=== PATIENT | male | born 1975 | race Caucasian/White ===

== ENCOUNTER 2019-12-05 17:06 | Inpatient (IN) | payer MEDICAID, SELFPAY ==
[~2019-12-05] VITALS: Ht 175.3 cm; Wt 68.5 kg
[2019-12-05 17:12] VITALS: BP_SYST 131
[2019-12-05 18:36] LABS: CALCIUM 7.8 mg/dL (8.4-11.0); CREATININE 2.11 mg/dL (0.55-1.30); POTASSIUM 3.3 mmol/L (3.5-5.1)
[2019-12-05 18:41] LABS: ALBUMIN 1.7 g/dL (3.4-4.8); TOTAL BILIRUBIN 0.2 mg/dL (0.0-1.0)
[2019-12-05 18:43] LABS: BASOPHILS % (AUTO) 0.4 % (0.0-2.0); EOSINOPHILS % (AUTO) 0.5 % (0.0-4.0); LYMPHOCYTES # (AUTO) 1.3 K/uL (1.0-5.5); MEAN CORPUSCULAR HEMOGLOBIN 30 pg (27-31); MEAN CORPUSCULAR HGB CONC 33 % (32-36); MEAN CORPUSCULAR VOLUME 89 fL (79.0-98.0); MONOCYTES # (AUTO) 0.3 K/uL (0.0-1.0); NEUTROPHILS # (AUTO) 2.6 K/uL (1.8-7.7); NEUTROPHILS % (AUTO) 60.1 % (40.0-70.0); PLATELET COUNT (AUTO) 269 K/uL (130-430); RED CELL DISTRIBUTION WIDTH 13.1 % (9.0-15.0); WHITE BLOOD COUNT (AUTO) 4.3 K/uL (4.8-10.8)
[2019-12-05 18:45] LABS: BILIRUBIN,URINE NEGATIVE (NEGATIVE); BLOOD, URINE 2+ (NEGATIVE); GLUCOSE,URINE 3+ (NEGATIVE); KETONES,URINE NEGATIVE (NEGATIVE); LEUKOCYTE ESTERASE ,URINE 2+ (NEGATIVE); NITRITE, URINE NEGATIVE (NEGATIVE); PROTEIN URINE 2+ (NEGATIVE); UROBILINOGEN,URINE 0.2 (0.2-1.0)
[2019-12-05 18:52] LABS: RED BLOOD CELL COUNT(AUTO) 1.98 MIL/uL (4.2-6.2)
[2019-12-05 19:04] LABS: HEMOGLOBIN 5.9 g/dL (14.0-18.0)
[2019-12-05 19:15] LABS: CLARITY/URINE HAZY (CLEAR); COLOR,URINE STRAW (YELLOW)
[2019-12-05 19:26] LABS: BACTERIA,URINE MANY /HPF (None Seen); WBC,URINE >100 /HPF (0-3)
[2019-12-05 19:27] LABS: MUCUS,URINE 1+ /LPF (None Seen)
[2019-12-05] MEDS ORDERED: LIDOCAINE 1% 10 MG/ML, 20 ML MDV INJ ONE (20:15)
[2019-12-05] MEDS ORDERED: NACL 0.9% 2,500 ML IV ONE (21:15)
[2019-12-05] MEDS: 0.45% NACL 1,000 ML IV SCH (21:15)
[2019-12-05] MEDS ORDERED: cefTRIAXone 1 GM IVPB PREMIX 50 ML IV ONE (21:15)
[2019-12-05] MEDS ORDERED: INSULIN REGULAR, HUMAN 10 UNITS/0.1 ML INJ IVP ONE (21:15)
[2019-12-05 22:50] VITALS: BP_SYST 110
[2019-12-06] VITALS: BP_SYST 112
[2019-12-06 08:00] VITALS: BP_SYST 160
[2019-12-06 11:22] VITALS: BP_SYST 155
[2019-12-06] MEDS: PIPERACILLIN/TAZO 2.25G/DEX-IS 50 ML IV SCH ×3 (11:27→17:42)
[2019-12-06] MEDS ORDERED: CRAN1CAP7 PO (11:46)
[2019-12-06] MEDS ORDERED: ASCO500T20 PO (11:46)
[2019-12-06] MEDS ORDERED: INSU100V42 SUBCUT (11:46)
[2019-12-06] MEDS ORDERED: NOR10 PO (11:46)
[2019-12-06] MEDS ORDERED: GLIP5TAB13 PO ×2 (11:46→13:43)
[2019-12-06] MEDS ORDERED: MULT-1189 PO (13:43)
[2019-12-06] MEDS ORDERED: ACET-2165 PO (13:43)
[2019-12-06] MEDS ORDERED: HYDR-4038 PO (13:43)
[2019-12-06] MEDS ORDERED: TAMS-11 PO (13:43)
[2019-12-06] MEDS ORDERED: RIVA10TA PO (13:43)
[2019-12-06] MEDS ORDERED: ZINC220T4 PO (13:43)
[2019-12-06] MEDS ORDERED: PRO40 PO (13:43)
[2019-12-06] MEDS ORDERED: PRAV80TA PO (13:43)
[2019-12-06] MEDS ORDERED: LABE200T28 PO (13:43)
[2019-12-06] MEDS ORDERED: LISI-209 PO (13:43)
[2019-12-06] MEDS ORDERED: INSULIN GLARGINE SUBCUT (13:44)
[2019-12-06] MEDS ORDERED: DEXTROSE 50%-WATER 50 ML DISP.SYRIN IVP PRN (15:00)
[2019-12-06] MEDS ORDERED: GLUCOSE 15 GM GEL (in 37.5 GM TUBE) PO PRN (15:00)
[2019-12-06] MEDS ORDERED: D5W 1,000 ML IV PRN (15:00)
[2019-12-06 16:00] VITALS: BP_SYST 153
[2019-12-06] MEDS ORDERED: hydrALAZINE HCL 25 MG TABLET PO PRN (17:15)
[2019-12-06] MEDS: INSULIN REGULAR, HUMAN 100 UNITS/ML, 10 ML VIAL (humuLIN R) SUBCUT PRN (17:41)
[2019-12-06 18:05] LABS: BASOPHILS # (AUTO) 0.1 K/uL (0.0-0.2); EOSINOPHILS % (AUTO) 0.4 % (0.0-4.0); HEMATOCRIT 34.7 % (36-54); HEMOGLOBIN 11.4 g/dL (14.0-18.0); LYMPHOCYTES # (AUTO) 1.1 K/uL (1.0-5.5); LYMPHOCYTES % (AUTO) 17.7 % (20.5-51.5); MEAN CORPUSCULAR HEMOGLOBIN 29 pg (27-31); MEAN CORPUSCULAR HGB CONC 33 % (32-36); MEAN CORPUSCULAR VOLUME 88 fL (79.0-98.0); MONOCYTES # (AUTO) 0.4 K/uL (0.0-1.0); MONOCYTES % (AUTO) 5.6 % (1.7-9.3); NEUTROPHILS # (AUTO) 4.7 K/uL (1.8-7.7); NEUTROPHILS % (AUTO) 75.3 % (40.0-70.0); PLATELET COUNT (AUTO) 254 K/uL (130-430); RED BLOOD CELL COUNT(AUTO) 3.95 MIL/uL (4.2-6.2); RED CELL DISTRIBUTION WIDTH 13.4 % (9.0-15.0); WHITE BLOOD COUNT (AUTO) 6.2 K/uL (4.8-10.8)
[2019-12-06 20:00] VITALS: BP_SYST 149
[2019-12-06] MEDS: ASCORBIC ACID 500 MG TABLET PO SCH (21:00)
[2019-12-06] MEDS: TAMSULOSIN HCL 0.4 MG CAP PO SCH (21:00)
[2019-12-06] MEDS ORDERED: PRAVASTATIN SODIUM 20 MG TABLET (PRAVACHOL) PO SCH (21:00)
[2019-12-06] MEDS: LABETALOL HCL 100 MG TABLET PO SCH (21:04)
[2019-12-06] MEDS: 0.45% NACL 1,000 ML IV SCH (23:55)
[2019-12-07] VITALS: BP_SYST 141
[2019-12-07] MEDS: LABETALOL HCL 100 MG TABLET PO SCH ×3 (05:53→21:49)
[2019-12-07] MEDS: PIPERACILLIN/TAZO 2.25G/DEX-IS 50 ML IV SCH ×4 (05:53→18:03)
[2019-12-07 08:00] VITALS: BP_SYST 144
[2019-12-07] MEDS: ASCORBIC ACID 500 MG TABLET PO SCH ×2 (10:26→21:00)
[2019-12-07] MEDS: PANTOPRAZOLE SODIUM 40 MG TAB PO SCH (10:27)
[2019-12-07] MEDS: amLODIPine BESYLATE 10 MG TABLET PO SCH (10:27)
[2019-12-07] MEDS: LISINOPRIL 5 MG TABLET PO SCH (10:27)
[2019-12-07 12:00] VITALS: BP_SYST 165
[2019-12-07] MEDS: 0.45% NACL 1,000 ML IV SCH (12:59)
[2019-12-07] MEDS: INSULIN REGULAR, HUMAN 100 UNITS/ML, 10 ML VIAL (humuLIN R) SUBCUT PRN ×2 (13:00→18:04)
[2019-12-07] MEDS: HEPARIN SODIUM,PORCINE 5000 UNITS/ML VIAL SUBCUT SCH ×2 (14:00→21:49)
[2019-12-07 16:06] VITALS: BP_SYST 144
[2019-12-07 20:00] VITALS: BP_SYST 149
[2019-12-07] MEDS: TAMSULOSIN HCL 0.4 MG CAP PO SCH (21:00)
[2019-12-08] VITALS: BP_SYST 171
[2019-12-08] MEDS: 0.45% NACL 1,000 ML IV SCH ×2 (02:09→15:55)
[2019-12-08 04:00] VITALS: BP_SYST 168
[2019-12-08] MEDS: HEPARIN SODIUM,PORCINE 5000 UNITS/ML VIAL SUBCUT SCH ×3 (06:00→21:37)
[2019-12-08] MEDS: LABETALOL HCL 100 MG TABLET PO SCH ×3 (06:00→21:29)
[2019-12-08] MEDS: PIPERACILLIN/TAZO 2.25G/DEX-IS 50 ML IV SCH ×3 (06:00→12:17)
[2019-12-08 08:00] VITALS: BP_SYST 162
[2019-12-08] MEDS: amLODIPine BESYLATE 10 MG TABLET PO SCH (08:43)
[2019-12-08] MEDS: FOLIC ACID 1 MG TABLET PO SCH (08:43)
[2019-12-08] MEDS: ASCORBIC ACID 500 MG TABLET PO SCH ×2 (08:43→20:37)
[2019-12-08] MEDS: PANTOPRAZOLE SODIUM 40 MG TAB PO SCH (08:43)
[2019-12-08] MEDS: LISINOPRIL 5 MG TABLET PO SCH (08:43)
[2019-12-08] MEDS: INSULIN REGULAR, HUMAN 100 UNITS/ML, 10 ML VIAL (humuLIN R) SUBCUT PRN ×2 (12:18→18:32)
[2019-12-08 12:29] VITALS: BP_SYST 154
[2019-12-08] MEDS: LEVOFLOXACIN 250 MG TABLET PO SCH (19:02)
[2019-12-08 20:00] VITALS: BP_SYST 147
[2019-12-08] MEDS: TAMSULOSIN HCL 0.4 MG CAP PO SCH (20:36)
[2019-12-09 01:03] LABS: BILIRUBIN,URINE NEGATIVE (NEGATIVE); BLOOD, URINE 2+ (NEGATIVE); CLARITY/URINE CLEAR (CLEAR); COLOR,URINE YELLOW (YELLOW); GLUCOSE,URINE TRACE (NEGATIVE); KETONES,URINE NEGATIVE (NEGATIVE); LEUKOCYTE ESTERASE ,URINE NEGATIVE (NEGATIVE); NITRITE, URINE NEGATIVE (NEGATIVE); PROTEIN URINE 3+ (NEGATIVE); UROBILINOGEN,URINE 0.2 (0.2-1.0)
[2019-12-09 03:07] LABS: BACTERIA,URINE FEW /HPF (None Seen); URINE AMORPHOUS URATE 1+ /HPF (None Seen); WBC,URINE 0-3 /HPF (0-3)
[2019-12-09] MEDS: 0.45% NACL 1,000 ML IV SCH ×2 (05:15→19:02)
[2019-12-09] MEDS: HEPARIN SODIUM,PORCINE 5000 UNITS/ML VIAL SUBCUT SCH ×3 (06:00→22:00)
[2019-12-09] MEDS: LABETALOL HCL 100 MG TABLET PO SCH ×3 (06:00→22:52)
[2019-12-09 08:00] VITALS: BP_SYST 122
[2019-12-09] MEDS: FOLIC ACID 1 MG TABLET PO SCH (08:23)
[2019-12-09] MEDS: PANTOPRAZOLE SODIUM 40 MG TAB PO SCH (08:23)
[2019-12-09] MEDS: amLODIPine BESYLATE 10 MG TABLET PO SCH (08:23)
[2019-12-09] MEDS: ASCORBIC ACID 500 MG TABLET PO SCH ×2 (08:23→21:00)
[2019-12-09] MEDS: LISINOPRIL 5 MG TABLET PO SCH (08:23)
[2019-12-09] MEDS: INSULIN REGULAR, HUMAN 100 UNITS/ML, 10 ML VIAL (humuLIN R) SUBCUT PRN ×2 (11:37→19:02)
[2019-12-09 12:00] VITALS: BP_SYST 132
[2019-12-09 16:00] VITALS: BP_SYST 142
[2019-12-09 18:12] LABS: URINE SODIUM, RANDOM 46 mmol/L (40-220)
[2019-12-09] MEDS: LEVOFLOXACIN 250 MG TABLET PO SCH (19:02)
[2019-12-09] MEDS: TAMSULOSIN HCL 0.4 MG CAP PO SCH (21:00)
[2019-12-09] MEDS: ACETAMINOPHEN 325 MG TABLET PO PRN (21:00)
[2019-12-09 21:15] VITALS: BP_SYST 124
[2019-12-10 00:15] VITALS: BP_SYST 94
[2019-12-10] MEDS: LABETALOL HCL 100 MG TABLET PO SCH ×3 (06:00→21:51)
[2019-12-10] MEDS: HEPARIN SODIUM,PORCINE 5000 UNITS/ML VIAL SUBCUT SCH ×3 (06:57→21:53)
[2019-12-10 07:17] LABS: BASOPHILS % (AUTO) 0.2 % (0.0-2.0); EOSINOPHILS % (AUTO) 0.1 % (0.0-4.0); HEMATOCRIT 32.2 % (36-54); HEMOGLOBIN 10.7 g/dL (14.0-18.0); LYMPHOCYTES # (AUTO) 1.4 K/uL (1.0-5.5); LYMPHOCYTES % (AUTO) 36.4 % (20.5-51.5); MEAN CORPUSCULAR HEMOGLOBIN 29 pg (27-31); MEAN CORPUSCULAR HGB CONC 33 % (32-36); MEAN CORPUSCULAR VOLUME 87 fL (79.0-98.0); MONOCYTES # (AUTO) 0.2 K/uL (0.0-1.0); MONOCYTES % (AUTO) 6.1 % (1.7-9.3); NEUTROPHILS # (AUTO) 2.1 K/uL (1.8-7.7); NEUTROPHILS % (AUTO) 57.2 % (40.0-70.0); PLATELET COUNT (AUTO) 213 K/uL (130-430); RED BLOOD CELL COUNT(AUTO) 3.71 MIL/uL (4.2-6.2); RED CELL DISTRIBUTION WIDTH 13.1 % (9.0-15.0); WHITE BLOOD COUNT (AUTO) 3.7 K/uL (4.8-10.8)
[2019-12-10 08:00] VITALS: BP_SYST 125
[2019-12-10] MEDS: 0.45% NACL 1,000 ML IV SCH (08:00)
[2019-12-10 08:19] LABS: ALBUMIN 1.7 g/dL (3.4-4.8); CALCIUM 7.7 mg/dL (8.4-11.0); CREATININE 2.06 mg/dL (0.55-1.30); PHOSPHORUS 3.5 mg/dL (2.7-4.5); TOTAL BILIRUBIN 0.2 mg/dL (0.0-1.0)
[2019-12-10] MEDS: FOLIC ACID 1 MG TABLET PO SCH (08:21)
[2019-12-10] MEDS: amLODIPine BESYLATE 10 MG TABLET PO SCH (08:21)
[2019-12-10] MEDS: LISINOPRIL 5 MG TABLET PO SCH (08:22)
[2019-12-10] MEDS: ASCORBIC ACID 500 MG TABLET PO SCH ×2 (08:22→21:51)
[2019-12-10] MEDS: PANTOPRAZOLE SODIUM 40 MG TAB PO SCH (08:22)
[2019-12-10 09:27] LABS: POTASSIUM 2.7 mmol/L (3.5-5.1)
[2019-12-10] MEDS ORDERED: POTASSIUM CHLORIDE 30 MEQ in NS 250 ML IV ONE (09:45)
[2019-12-10] MEDS: INSULIN REGULAR, HUMAN 100 UNITS/ML, 10 ML VIAL (humuLIN R) SUBCUT PRN (11:40)
[2019-12-10 12:03] VITALS: BP_SYST 126
[2019-12-10] MEDS: LEVOFLOXACIN 250 MG TABLET PO SCH (18:00)
[2019-12-10 21:00] VITALS: BP_SYST 119
[2019-12-10 21:30] LABS: CREATININE, URINE 37.2 mg/dL; MICROALBUMIN URINE RANDOM 1845.7 ug/ml (NOT ESTABLISHED)
[2019-12-10] MEDS: TAMSULOSIN HCL 0.4 MG CAP PO SCH (21:50)
[2019-12-10] MEDS: MIRTAZAPINE 15 MG TABLET PO SCH (21:51)
[2019-12-11] MEDS: 0.45% NACL 1,000 ML IV SCH ×3 (00:20→23:46)
[2019-12-11] MEDS ORDERED: ONDANSETRON HCL 4 MG/2 ML VIAL IVP PRN (02:00)
[2019-12-11 05:00] VITALS: BP_SYST 126
[2019-12-11] MEDS: LABETALOL HCL 100 MG TABLET PO SCH ×3 (06:00→21:10)
[2019-12-11] MEDS: HEPARIN SODIUM,PORCINE 5000 UNITS/ML VIAL SUBCUT SCH ×3 (06:51→21:10)
[2019-12-11 07:18] LABS: BASOPHILS % (AUTO) 0.4 % (0.0-2.0); HEMATOCRIT 30.1 % (36-54); LYMPHOCYTES # (AUTO) 0.9 K/uL (1.0-5.5); LYMPHOCYTES % (AUTO) 19.5 % (20.5-51.5); MEAN CORPUSCULAR HEMOGLOBIN 29 pg (27-31); MEAN CORPUSCULAR HGB CONC 33 % (32-36); MEAN CORPUSCULAR VOLUME 87 fL (79.0-98.0); MONOCYTES # (AUTO) 0.2 K/uL (0.0-1.0); MONOCYTES % (AUTO) 3.6 % (1.7-9.3); NEUTROPHILS # (AUTO) 3.5 K/uL (1.8-7.7); NEUTROPHILS % (AUTO) 76.5 % (40.0-70.0); PLATELET COUNT (AUTO) 208 K/uL (130-430); RED BLOOD CELL COUNT(AUTO) 3.46 MIL/uL (4.2-6.2); RED CELL DISTRIBUTION WIDTH 13.2 % (9.0-15.0); RETICULOCYTE COUNT 0.7 % (0.5-1.5); WHITE BLOOD COUNT (AUTO) 4.5 K/uL (4.8-10.8)
[2019-12-11 07:38] LABS: CALCIUM 7.6 mg/dL (8.4-11.0); CREATININE 2.27 mg/dL (0.55-1.30); POTASSIUM 3.3 mmol/L (3.5-5.1)
[2019-12-11 08:00] VITALS: BP_SYST 107
[2019-12-11 08:30] LABS: TOTAL IRON BIND. CAPACITY 119 ug/dL (250-450)
[2019-12-11] MEDS: ASCORBIC ACID 500 MG TABLET PO SCH ×2 (09:00→21:00)
[2019-12-11] MEDS: FOLIC ACID 1 MG TABLET PO SCH (09:00)
[2019-12-11] MEDS: LISINOPRIL 5 MG TABLET PO SCH (09:00)
[2019-12-11] MEDS: PANTOPRAZOLE SODIUM 40 MG TAB PO SCH (09:00)
[2019-12-11] MEDS: amLODIPine BESYLATE 10 MG TABLET PO SCH (09:00)
[2019-12-11 10:36] LABS: HEMATOCRIT 17.7 % (36-54)
[2019-12-11 13:00] VITALS: BP_SYST 104
[2019-12-11] MEDS ORDERED: KCL 20 mEq in 100 mL (PREMIX) 100 ML IV ONE (16:45)
[2019-12-11 17:00] VITALS: BP_SYST 123
[2019-12-11] MEDS: ACETAMINOPHEN 325 MG TABLET PO PRN ×2 (18:00→23:45)
[2019-12-11] MEDS: LEVOFLOXACIN 250 MG TABLET PO SCH (18:13)
[2019-12-11 20:00] VITALS: BP_SYST 129
[2019-12-11] MEDS ORDERED: BALSAM PERU/CASTOR OIL 60 GM OINT...G. TP ONE (20:00)
[2019-12-11] MEDS: MIRTAZAPINE 15 MG TABLET PO SCH (21:00)
[2019-12-11] MEDS: TAMSULOSIN HCL 0.4 MG CAP PO SCH (21:00)
[2019-12-12 00:14] VITALS: BP_SYST 137
[2019-12-12] MEDS: LABETALOL HCL 100 MG TABLET PO SCH ×3 (05:35→21:00)
[2019-12-12] MEDS: HEPARIN SODIUM,PORCINE 5000 UNITS/ML VIAL SUBCUT SCH ×3 (05:35→21:00)
[2019-12-12] MEDS: ACETAMINOPHEN 325 MG TABLET PO PRN ×3 (05:35→18:04)
[2019-12-12 07:10] LABS: FOLATE (FOLIC ACID) >20.0 ng/mL (>3.0)
[2019-12-12 07:33] LABS: BASOPHILS % (AUTO) 0.3 % (0.0-2.0); HEMATOCRIT 28.9 % (36-54); HEMOGLOBIN 9.8 g/dL (14.0-18.0); LYMPHOCYTES # (AUTO) 0.6 K/uL (1.0-5.5); LYMPHOCYTES % (AUTO) 12.8 % (20.5-51.5); MEAN CORPUSCULAR HEMOGLOBIN 29 pg (27-31); MEAN CORPUSCULAR HGB CONC 34 % (32-36); MEAN CORPUSCULAR VOLUME 86 fL (79.0-98.0); MONOCYTES # (AUTO) 0.2 K/uL (0.0-1.0); MONOCYTES % (AUTO) 3.7 % (1.7-9.3); NEUTROPHILS # (AUTO) 3.9 K/uL (1.8-7.7); NEUTROPHILS % (AUTO) 83.2 % (40.0-70.0); PLATELET COUNT (AUTO) 192 K/uL (130-430); RED BLOOD CELL COUNT(AUTO) 3.35 MIL/uL (4.2-6.2); RED CELL DISTRIBUTION WIDTH 13.4 % (9.0-15.0); WHITE BLOOD COUNT (AUTO) 4.6 K/uL (4.8-10.8)
[2019-12-12] MEDS: amLODIPine BESYLATE 10 MG TABLET PO SCH (09:00)
[2019-12-12] MEDS: FOLIC ACID 1 MG TABLET PO SCH (09:00)
[2019-12-12] MEDS: ASCORBIC ACID 500 MG TABLET PO SCH ×2 (09:00→21:00)
[2019-12-12] MEDS: LISINOPRIL 5 MG TABLET PO SCH (09:00)
[2019-12-12] MEDS: PANTOPRAZOLE SODIUM 40 MG TAB PO SCH (09:00)
[2019-12-12 11:35] LABS: FERRITIN 1295 ng/mL (30-400)
[2019-12-12] MEDS: BALSAM PERU/CASTOR OIL 60 GM OINT...G. TP SCH (12:22)
[2019-12-12] MEDS: 0.45% NACL 1,000 ML IV SCH (12:23)
[2019-12-12] MEDS: LEVOFLOXACIN 250 MG TABLET PO SCH (18:03)
[2019-12-12] MEDS: TAMSULOSIN HCL 0.4 MG CAP PO SCH (21:00)
[2019-12-12] MEDS: MIRTAZAPINE 15 MG TABLET PO SCH (21:00)
[2019-12-13] MEDS: 0.45% NACL 1,000 ML IV SCH ×2 (01:56→15:20)
[2019-12-13 04:00] VITALS: BP_SYST 128
[2019-12-13] MEDS: ACETAMINOPHEN 325 MG TABLET PO PRN ×2 (04:30→13:53)
[2019-12-13] MEDS: LABETALOL HCL 100 MG TABLET PO SCH ×2 (06:00→13:53)
[2019-12-13] MEDS: HEPARIN SODIUM,PORCINE 5000 UNITS/ML VIAL SUBCUT SCH ×2 (06:00→13:54)
[2019-12-13] MEDS: INSULIN REGULAR, HUMAN 100 UNITS/ML, 10 ML VIAL (humuLIN R) SUBCUT PRN (07:10)
[2019-12-13] MEDS: FOLIC ACID 1 MG TABLET PO SCH (09:00)
[2019-12-13] MEDS: ASCORBIC ACID 500 MG TABLET PO SCH (09:00)
[2019-12-13] MEDS: PANTOPRAZOLE SODIUM 40 MG TAB PO SCH (09:00)
[2019-12-13] MEDS: amLODIPine BESYLATE 10 MG TABLET PO SCH (09:00)
[2019-12-13] MEDS: BALSAM PERU/CASTOR OIL 60 GM OINT...G. TP SCH (09:00)
[2019-12-13] MEDS: LISINOPRIL 5 MG TABLET PO SCH (09:00)
[2019-12-13] MEDS: QUEtiapine FUMARATE 25 MG TABLET PO SCH ×2 (09:00→15:00)
[2019-12-13] MEDS ORDERED: DICYCLOMINE HCL 10 MG CAPSULE PO SCH (09:45)
[2019-12-13] MEDS ORDERED: SER25 PO ×4 (15:35→15:38)
[2019-12-13] MEDS ORDERED: DICY10CA13 PO (15:40)
[2019-12-13] MEDS ORDERED: DICY10SO PO (15:40)
[2019-12-13] MEDS ORDERED: FOLI-43 PO (15:41)
[2019-12-13] MEDS ORDERED: HEPA500015 SUBCUT (15:42)
[2019-12-13] MEDS ORDERED: LEVO750T45 PO (15:44)
[2019-12-13] MEDS ORDERED: REM15 PO (15:45)
[2019-12-13 15:46] LABS: HAPTOGLOBIN 514 mg/dL (23-355)
[2019-12-13] MEDS ORDERED: BALS60OI TP (15:46)
[2019-12-13] MEDS: LEVOFLOXACIN 250 MG TABLET PO SCH (18:00)
[2019-12-13] MEDS ORDERED: MIRTAZAPINE 15 MG TABLET PO SCH (21:00)
== END 2019-12-13 18:35 | DRG 720 ==
LOC: SED 17:06 → STU 21:13 → SMU 12-07 20:02
PROVIDERS: ADMIT Internal Medicine; ATTEND Internal Medicine
PROC: 30233N1 Transfusion of Nonautologous Red Blood Cells into Peripheral Vein, Percutaneous Approach (ICD-10-PCS; principal; 2019-12-06)
DX: A41.9 Sepsis, unspecified organism (principal); U07.1 COVID-19; E43 Unspecified severe protein-calorie malnutrition; N17.9 Acute kidney failure, unspecified; G82.20 Paraplegia, unspecified; L89.90 Pressure ulcer of unspecified site, unspecified stage; B96.1 Klebsiella pneumoniae [K. pneumoniae] as the cause of diseases classified elsewhere; E87.1 Hypo-osmolality and hyponatremia; K21.9 Gastro-esophageal reflux disease without esophagitis; I10 Essential (primary) hypertension; E78.5 Hyperlipidemia, unspecified; J69.0 Pneumonitis due to inhalation of food and vomit; D64.9 Anemia, unspecified; N40.0 Benign prostatic hyperplasia without lower urinary tract symptoms; D63.8 Anemia in other chronic diseases classified elsewhere; F32.9 Major depressive disorder, single episode, unspecified; F41.9 Anxiety disorder, unspecified; E11.622 Type 2 diabetes mellitus with other skin ulcer; L98.499 Non-pressure chronic ulcer of skin of other sites with unspecified severity; G89.29 Other chronic pain; M54.9 Dorsalgia, unspecified; E87.6 Hypokalemia; E86.0 Dehydration; N31.9 Neuromuscular dysfunction of bladder, unspecified; N13.6 Pyonephrosis; Z68.22 Body mass index [BMI] 22.0-22.9, adult; Z74.01 Bed confinement status
CPT/HCPCS: 36415; 71045; 76770; 80048; 80053; 81000-TC; 82043; 82272; 82570; 82570-TC; 82607; 82728; 82746; 82962; 83010; 83540-TC; 83550-TC; 83605; 83735-TC; 83935-TC; 84100-TC; 84302-TC; 84311; 85025; 85044-TC; 86886; 86900; 86901; 86920; 87040-TC; 87081; 87086; 87186-TC; 93005; 96365; 96375; 99285; J0696; J1644; J1815; J2405; J2543; J3480; J7050; P9021; U0003-CS

== ENCOUNTER 2022-05-17 22:35 | Inpatient (IN) | payer MEDICAID ==
[~2022-05-17] VITALS: Ht 175.3 cm; Wt 78.0 kg
[~2022-05-17 22:35] MED LIST: ACET325T PO; ASCO500T20 PO; BALS60OI TP; CRAN1CAP7 PO; DICY10CA13 PO; FOLI-43 PO; GLIP5TAB13 PO; HEPA500015 SUBCUT; HYDR-4038 PO; INSU100V42 SUBCUT; INSULIN GLARGINE SUBCUT; LABE200T9 PO; LEVO750T64 PO; LISI-209 PO; MIRT-114 PO; MULT-1189 PO; NOR10 PO; PRAV80TA PO; PRO40 PO; SER25 PO; TAMS-11 PO; ZINC220T4 PO
--- NOTE | 2022-05-17 22:39 | NUR ---
Placed in room 01 . Placed on secured entrance monitor, blood pressure machine and pulse oximeter. To gown for exam. Side rails up. Report given to Mecca MCKEON.
[2022-05-17 22:40] VITALS: BP_SYST 178
--- NOTE | 2022-05-17 23:02 | NUR ---
XRAY AT BEDSIDE
[2022-05-17] MEDS ORDERED: VANCOMYCIN HCL 1,000 MG in NS 250 ML IV ONE (23:30)
[2022-05-17] MEDS ORDERED: MEROPENEM 1 GM IVPB PREMIX 50 ML IV ONE (23:30)
[2022-05-18] MEDS ORDERED: MEROPENEM 1 GM VIAL IV ONE (00:10)
--- NOTE | 2022-05-18 00:15 | NUR ---
PT BIB AMB FROM [facility] W C/O OF SOB AFTER DIALYSIS TODAY. SHUNT IN LEFT NECK MALFUNCTION AT DIALYSIS. PT WAS GIVEN A BREATHING TX. PT IS A PARAPLEGIC. NON-VERBAL, A/O X3.
[2022-05-18] MEDS ORDERED: VANCOMYCIN HCL 1000 MG/VIAL IV ONE (00:34)
--- NOTE | 2022-05-18 00:37 | NUR ---
COVID 19 SWAB TEST SAMPLE SENT TO LAB FOR ANALYSIS
[2022-05-18 00:41] LABS: BASOPHILS % (AUTO) 0.1 % (0.0-2.0); HEMATOCRIT 32.9 % (36-54); HEMOGLOBIN 10.8 g/dL (14.0-18.0); LYMPHOCYTES # (AUTO) 0.3 K/uL (1.0-5.5); LYMPHOCYTES % (AUTO) 1.9 % (20.5-51.5); MEAN CORPUSCULAR HEMOGLOBIN 30 pg (27-31); MEAN CORPUSCULAR HGB CONC 33 % (32-36); MEAN CORPUSCULAR VOLUME 91 fL (79.0-98.0); MONOCYTES # (AUTO) 0.5 K/uL (0.0-1.0); MONOCYTES % (AUTO) 2.9 % (1.7-9.3); NEUTROPHILS # (AUTO) 17.3 K/uL (1.8-7.7); NEUTROPHILS % (AUTO) 95.1 % (40.0-70.0); PLATELET COUNT (AUTO) 200 K/uL (130-430); RED BLOOD CELL COUNT(AUTO) 3.61 MIL/uL (4.2-6.2); RED CELL DISTRIBUTION WIDTH 15.2 % (9.0-15.0); WHITE BLOOD COUNT (AUTO) 18.2 K/uL (4.8-10.8)
[2022-05-18 01:10] LABS: CALCIUM 6.7 mg/dL (8.4-11.0); CREATININE 9.24 mg/dL (0.55-1.30)
[2022-05-18 01:25] LABS: ALBUMIN 1.8 g/dL (3.4-4.8); TOTAL BILIRUBIN 0.2 mg/dL (0.0-1.0)
[2022-05-18] MEDS ORDERED: PIPE2.2512 IV (01:42)
[2022-05-18] MEDS ORDERED: EPOE3000 (01:42)
--- NOTE | 2022-05-18 02:17 | NUR ---
PROVIDED PATIENT WITH WATER. PATIENT IS MORE VERBAL AND ABLE TO MAKE REQUESTS.
--- NOTE | 2022-05-18 03:06 | NUR ---
PT RESTING IN BED, NO ACUTE DISTRESS NOTED, VSS.
--- NOTE | 2022-05-18 03:30 | NUR ---
Admit bed requested Patient will be admitted to care of Dr. CASH. Admitted to TELE unit. Diagnosis PNEUMONIA Inpatient (Yes or No) YES Observation (Yes or No) NO Orientation concerns or request close to nursing station (Yes or No) NO Covid Status NEG On vent or bipap NO Isolation requirements NO Needs a sitter NO From Home (Yes or if No enter name of facility) NO COVINA CARE Requires Dialysis (Yes or No) YES Med Rec Completed (Yes of No) YES
[2022-05-18] MEDS ORDERED: PIPERACILLIN/TAZOBACTAM 2.25 GM VIAL IV ONE ×2 (05:30→23:17)
[2022-05-18] MEDS: PIPERACILLIN/TAZOBACTAM 2.25 GM in NS 50 ML IV SCH ×2 (05:42→14:30)
--- NOTE | 2022-05-18 06:24 | NUR ---
Patient resting quietly. No acute distress noted. Vital signs within normal range.
[2022-05-18] MEDS ORDERED: MAGNESIUM SULFATE 50 ML IV PRN (07:00)
[2022-05-18] MEDS ORDERED: ACETAMINOPHEN 325 MG TABLET PO PRN ×2 (07:00→07:45)
[2022-05-18] MEDS ORDERED: MORPHINE 2 MG/ML INJ. SYRINGE IVP PRN ×2 (07:00)
[2022-05-18] MEDS ORDERED: POTASSIUM CHLORIDE 20 MEQ TAB.PRT.SR PO PRN (07:00)
[2022-05-18] MEDS ORDERED: ONDANSETRON HCL 4 MG/2 ML VIAL IVP PRN (07:00)
[2022-05-18] MEDS ORDERED: LORazepam 2 MG/ML VIAL IVP PRN (07:00)
[2022-05-18] MEDS ORDERED: DOCUSATE SODIUM 100 MG CAPSULE PO PRN (07:00)
[2022-05-18] MEDS ORDERED: NALOXONE HCL 0.4 MG/ML AMP (NARCAN) IVP PRN ×2 (07:00)
[2022-05-18] MEDS ORDERED: DEXTROSE 50% JECT 50 ML DISP.SYRIN IVP PRN (07:00)
[2022-05-18] MEDS ORDERED: MUPIROCIN 2% TOPICAL OINTMENT 22 GM NS PRN (07:00)
--- NOTE | 2022-05-18 07:30 | NUR ---
RECEIVED FROM LINDA VELASCO. ASSUMED CARE.
--- NOTE | 2022-05-18 07:31 | NUR ---
RECEIVED PT FROM LINDA MORRISON. ASSUMED CARE.
--- NOTE | 2022-05-18 07:37 | NUR ---
DR. CASH AT BEDSIDE TO ASSESS PT.
[2022-05-18 07:59] LABS: BASOPHILS % (AUTO) 0.3 % (0.0-2.0); EOSINOPHILS # (AUTO) 0.1 K/uL (0.0-0.4); EOSINOPHILS % (AUTO) 0.5 % (0.0-4.0); HEMATOCRIT 29.3 % (36-54); HEMOGLOBIN 9.8 g/dL (14.0-18.0); LYMPHOCYTES % (AUTO) 8.1 % (20.5-51.5); MEAN CORPUSCULAR HEMOGLOBIN 30 pg (27-31); MEAN CORPUSCULAR HGB CONC 34 % (32-36); MEAN CORPUSCULAR VOLUME 90 fL (79.0-98.0); MONOCYTES # (AUTO) 0.4 K/uL (0.0-1.0); MONOCYTES % (AUTO) 3.5 % (1.7-9.3); NEUTROPHILS # (AUTO) 11.3 K/uL (1.8-7.7); NEUTROPHILS % (AUTO) 87.6 % (40.0-70.0); PLATELET COUNT (AUTO) 207 K/uL (130-430); RED BLOOD CELL COUNT(AUTO) 3.26 MIL/uL (4.2-6.2); RED CELL DISTRIBUTION WIDTH 15.3 % (9.0-15.0)
[2022-05-18 08:07] LABS: WHITE BLOOD COUNT (AUTO) 12.9 K/uL (4.8-10.8)
[2022-05-18 08:18] LABS: CALCIUM 5.9 mg/dL (8.4-11.0); CREATININE 9.47 mg/dL (0.55-1.30)
--- NOTE | 2022-05-18 08:37 | NUR ---
PT'S BS 165, INSULIN HELD, PT REFUSES TO EAT AT THIS TIME.
[2022-05-18] MEDS ORDERED: CALCIUM GLUCONATE 1 GM in NS 100 ML IV ONE (08:45)
[2022-05-18] MEDS ORDERED: CALCIUM GLUCONATE 1 GM/10 ML VIAL ONE (09:03)
--- NOTE | 2022-05-18 09:25 | NUR ---
CALCIUM GLUCONATE 1GM IVPB INITIATED FOR CA=5.9.
[2022-05-18] MEDS: FOLIC ACID 1 MG TABLET PO SCH (09:58)
[2022-05-18] MEDS: amLODIPine BESYLATE 10 MG TABLET PO SCH (09:59)
[2022-05-18] MEDS: lisinopriL 5 MG TABLET PO SCH (09:59)
[2022-05-18] MEDS: QUEtiapine FUMARATE 25 MG TABLET PO SCH ×3 (10:00→23:31)
--- NOTE | 2022-05-18 10:01 | NUR ---
SCHEDULED MEDS GIVEN AND TOLERATED WELL.
--- NOTE | 2022-05-18 12:38 | NUR ---
BLOOD SUGAR 140, NO INSULIN GIVEN PER RISS. PT EATING LUNCH AT THIS TIME. DENIES PAIN.
[2022-05-18] MEDS: CALCIUM ACETATE 667 MG CAP PO SCH ×2 (12:39→18:45)
[2022-05-18] MEDS ORDERED: LABETALOL HCL 100 MG TABLET PO SCH (14:00)
[2022-05-18] MEDS: LABETALOL HCL 100 MG TABLET PO SCH (14:00)
--- NOTE | 2022-05-18 14:39 | NUR ---
BLOOD PRESSURE 91/52, HR 74. SCHEDULED LABETALOL HELD.
--- NOTE | 2022-05-18 18:01 | NUR ---
HD NURSE AT BEDSIDE, HE STATED PT WILL RECEIVED HEMODIALYSIS LATER TONIGHT. PT MOVED TO ROOM 7 FOR SINK AVAILABILITY. HD CONSENT SIGNED AND PLACED IN CHART.
--- NOTE | 2022-05-18 18:10 | NUR ---
DR. MONK AT BEDSIDE TO ASSESS PT.
--- NOTE | 2022-05-18 19:27 | NUR ---
ENDORSED PT TO LINDA JOEL. ALL QUESTIONS AND CONCERNS ADDRESSED.
--- NOTE | 2022-05-18 19:58 | NUR ---
Dialysis nurse Alejandrina at bedside and reports that HD access site is not working and was unable to dialyze the pt. HD nurse received order to d/c access site per MD Morgan. Suture kit provided to nurse and will monitor site.
[2022-05-18] MEDS ORDERED: PRAVASTATIN SODIUM 20 MG TABLET (PRAVACHOL) PO SCH (21:00)
--- NOTE | 2022-05-18 21:40 | NUR ---
Patient will be admitted to care of MD Valentine. Admitted to TELE unit. Will go to room 111A. Complete and up to date summary report printed. SBAR report given at bedside to LINDA Leon with opportunity for questions.
[2022-05-18 23:00] VITALS: BP_SYST 148
[2022-05-18] MEDS: ATORVASTATIN 20 MG TABLET PO SCH (23:31)
[2022-05-18] MEDS: TAMSULOSIN HCL 0.4 MG CAP PO SCH (23:31)
[2022-05-19] VITALS: BP_SYST 148
--- NOTE | 2022-05-19 05:34 | NUR ---
RECEIVED PATIENT TO TELEMETRY WEST UNIT AT 2145 FROM ER. REPORT AND CARE OF PATIENT WAS ENDORSED FROM LINDA SHERIFF ER NURSE. PATIENT WAS NOT IN DISTRESS ON ADMISSION, HE IS QUIET WITH FLAT AFFECT. HE SPEAKS BOTH VAT[place] CITIZEN AND HEBREW WITH THE PRIMARY APPEARING TO BE [place] CITIZEN. WOUND ASSESSMENT AND CARE WAS DONE, PHOTOS WERE TAKEN OF RIGHT AND LEFT HIP, LEFT BUTTOCKS AND SACRAL AREA, AND BLISTERING APPEARANCE OF BACK. NO COMPLAINTS OF PAIN OR DISCOMFORT, PATIENT WAS CHECKED FREQUENTLY. PATIENT DOES HAVE ABILITY TO TURN SELF WITH USE OF SIDE RAILS, VITALS ARE STABLE.
[2022-05-19 06:43] LABS: BASOPHILS % (AUTO) 0.4 % (0.0-2.0); EOSINOPHILS # (AUTO) 0.2 K/uL (0.0-0.4); EOSINOPHILS % (AUTO) 3.1 % (0.0-4.0); HEMATOCRIT 28.3 % (36-54); HEMOGLOBIN 9.5 g/dL (14.0-18.0); LYMPHOCYTES # (AUTO) 1.4 K/uL (1.0-5.5); LYMPHOCYTES % (AUTO) 18.9 % (20.5-51.5); MEAN CORPUSCULAR HEMOGLOBIN 31 pg (27-31); MEAN CORPUSCULAR HGB CONC 34 % (32-36); MEAN CORPUSCULAR VOLUME 91 fL (79.0-98.0); MONOCYTES # (AUTO) 0.5 K/uL (0.0-1.0); MONOCYTES % (AUTO) 6.7 % (1.7-9.3); NEUTROPHILS # (AUTO) 5.1 K/uL (1.8-7.7); NEUTROPHILS % (AUTO) 70.9 % (40.0-70.0); PLATELET COUNT (AUTO) 201 K/uL (130-430); RED BLOOD CELL COUNT(AUTO) 3.13 MIL/uL (4.2-6.2); RED CELL DISTRIBUTION WIDTH 15.1 % (9.0-15.0); WHITE BLOOD COUNT (AUTO) 7.3 K/uL (4.8-10.8)
[2022-05-19 08:24] LABS: CALCIUM 6.9 mg/dL (8.4-11.0); CREATININE 9.93 mg/dL (0.55-1.30)
[2022-05-19] MEDS: CALCIUM ACETATE 667 MG CAP PO SCH ×3 (08:29→18:06)
[2022-05-19] MEDS: QUEtiapine FUMARATE 25 MG TABLET PO SCH ×2 (08:30→15:00)
[2022-05-19] MEDS: lisinopriL 5 MG TABLET PO SCH (08:31)
[2022-05-19] MEDS: amLODIPine BESYLATE 10 MG TABLET PO SCH (08:31)
[2022-05-19] MEDS: FOLIC ACID 1 MG TABLET PO SCH (08:32)
[2022-05-19] MEDS: FUROSEMIDE 40 MG/4 ML VIAL IVP SCH (08:33)
--- NOTE | 2022-05-19 08:50 | NUR ---
PAGED DR. MCKEON Regarding critical values BUN 111, Creat 9.93, Ca 6.9. Spoke to Norma. Waiting for response.
[2022-05-19] MEDS ORDERED: CALCIUM GLUCONATE 2 GM in NS 100 ML IV ONE ×2 (09:00→10:00)
[2022-05-19] MEDS: INSULIN LISPRO SLIDING SCALE 100 UNITS/ML, 3 ML VIAL (humaLOG) SUBCUT PRN (11:54)
--- NOTE | 2022-05-19 12:00 | NUR ---
RN ROUNDS Patient flat affect at this time. He is refusing medications at this time.
[2022-05-19 13:41] VITALS: BP_SYST 131
[2022-05-19 17:32] VITALS: BP_SYST 145
--- NOTE | 2022-05-19 19:03 | NUR ---
OPENING NOTE Patient laying in bed. Affect is flat. Denies pain or discomfort. Call light within reach. Safety precautions observed. Addendum: 05/19/22 at 1904 by Cachorro Pisano RN ACTUAL TIME 0740
--- NOTE | 2022-05-19 19:04 | NUR ---
CLOSING NOTE Patient laying in bed. Denies pain or discomfort. Call light within reach. All safety precautions observed.
[2022-05-19 20:00] VITALS: BP_SYST 161
[2022-05-20 00:30] VITALS: BP_SYST 153
[2022-05-20] MEDS: QUEtiapine FUMARATE 25 MG TABLET PO SCH ×4 (00:51→21:13)
[2022-05-20] MEDS: ATORVASTATIN 20 MG TABLET PO SCH ×2 (00:51→21:11)
[2022-05-20] MEDS: TAMSULOSIN HCL 0.4 MG CAP PO SCH ×2 (00:53→21:10)
[2022-05-20] MEDS: LABETALOL HCL 100 MG TABLET PO SCH ×4 (00:53→21:11)
[2022-05-20] MEDS: PIPERACILLIN/TAZOBACTAM 2.25 GM in NS 50 ML IV SCH ×3 (01:12→21:13)
[2022-05-20] MEDS: FUROSEMIDE 40 MG/4 ML VIAL IVP SCH ×3 (01:15→21:12)
[2022-05-20 02:24] VITALS: BP_SYST 137
[2022-05-20 07:32] LABS: CALCIUM 6.6 mg/dL (8.4-11.0)
[2022-05-20 07:33] LABS: CREATININE 9.94 mg/dL (0.55-1.30)
[2022-05-20 07:42] LABS: BASOPHILS % (AUTO) 0.4 % (0.0-2.0); EOSINOPHILS # (AUTO) 0.3 K/uL (0.0-0.4); EOSINOPHILS % (AUTO) 2.8 % (0.0-4.0); HEMATOCRIT 25.8 % (36-54); HEMOGLOBIN 8.7 g/dL (14.0-18.0); LYMPHOCYTES # (AUTO) 1.4 K/uL (1.0-5.5); LYMPHOCYTES % (AUTO) 13.7 % (20.5-51.5); MEAN CORPUSCULAR HEMOGLOBIN 31 pg (27-31); MEAN CORPUSCULAR HGB CONC 34 % (32-36); MEAN CORPUSCULAR VOLUME 90 fL (79.0-98.0); MONOCYTES # (AUTO) 0.5 K/uL (0.0-1.0); MONOCYTES % (AUTO) 4.8 % (1.7-9.3); NEUTROPHILS # (AUTO) 8.1 K/uL (1.8-7.7); NEUTROPHILS % (AUTO) 78.3 % (40.0-70.0); PLATELET COUNT (AUTO) 185 K/uL (130-430); RED BLOOD CELL COUNT(AUTO) 2.86 MIL/uL (4.2-6.2); RED CELL DISTRIBUTION WIDTH 14.8 % (9.0-15.0)
[2022-05-20 08:17] LABS: WHITE BLOOD COUNT (AUTO) 10.3 K/uL (4.8-10.8)
[2022-05-20] MEDS: CALCIUM ACETATE 667 MG CAP PO SCH ×3 (08:20→18:52)
[2022-05-20] MEDS: FOLIC ACID 1 MG TABLET PO SCH (08:21)
[2022-05-20] MEDS: lisinopriL 5 MG TABLET PO SCH (08:21)
[2022-05-20] MEDS: amLODIPine BESYLATE 10 MG TABLET PO SCH (08:21)
[2022-05-20 08:25] VITALS: BP_SYST 117
--- NOTE | 2022-05-20 08:25 | NUR ---
Scheduled medications given per order. Patient stable; resting comfortably in bed at this time. Denies any pain.
[2022-05-20] MEDS ORDERED: CALCIUM CHLORIDE 1 GM in NS 100 ML IV ONE (09:00)
--- NOTE | 2022-05-20 11:18 | NUR ---
CONSULTATION PAGED/CALLED Reason for Consultation: [] perma cath placement Person Who was Notified: [] FLORENTIN Consulting Physician: [] DR Augusta RODRIGUEZ Professor Criminal Justice Specialty: [] GEN SURGEON Ordering Physician: [] DR VERA
--- NOTE | 2022-05-20 11:35 | NUR ---
Checked blood sugar: 112 mg/dl - no coverage required. Patient stable at this time.
[2022-05-20 12:00] VITALS: BP_SYST 138
--- NOTE | 2022-05-20 12:00 | NUR ---
Patient ate breakfast, therefore Dr. Frank could not insert perm-a-cath. Patient needs to be NPO. Doctor states that catheter can be placed on Monday. Will notify doctor.
--- NOTE | 2022-05-20 13:19 | NUR ---
Scheduled medication given per order. Patient stable; resting comfortably in bed with no distress noted.
--- NOTE | 2022-05-20 14:35 | NUR ---
Dialysis nurse Cristian Barrios spoke to Dr. Abdalla regarding perm-a-cath placement. Informed doctor of BUN/creat results and that Dr. Frank can place catheter on Monday. HD nurse suggested Hemal cath placement. Per HD nurse, Dr. Abdalla wants to wait for perm-a-cath placement: BUN 117, creatinine 9.94.
--- NOTE | 2022-05-20 15:37 | NUR ---
Scheduled IV and po medications given per order. Patient stable; resting quietly in bed with no distress noted.
--- NOTE | 2022-05-20 15:42 | NUR ---
Dietitian Recommendations * Renal, CCHO diet w/ Nepro BID (ONS yields 840 kcal/day, 38 gm protein/day) * Encourage good PO intakes LP, MS, RD Please refer to Nutrition Assessment for details. Addendum: 05/20/22 at [address] Amended: Links added. Addendum: 05/20/22 at [address] CORRECTION: Dietitian Recommendations * Renal, CCHO diet w/ Nepro BID, Anshu BID (ONS yields 1020 kcal/day, 43 gm protein/day) * Encourage good PO intakes LP, MS, RD Please refer to Nutrition Assessment for details.
[2022-05-20 16:00] VITALS: BP_SYST 138
--- NOTE | 2022-05-20 17:12 | NUR ---
Scheduled medications given per order. Checked blood sugar: 168 mg/dl =- will cover per sliding scale. Patient stable at this time.
--- NOTE | 2022-05-20 17:35 | NUR ---
Patient had BM; cleaned and all wounds cleansed with normal saline and covered with foam dressing. Patient repositioned himself to the right; stable at this time.
[2022-05-20] MEDS: EPOETIN ALFA-EPBX 4,000 UNITS/ML VIAL SUBCUT SCH (18:52)
[2022-05-20] MEDS: INSULIN LISPRO SLIDING SCALE 100 UNITS/ML, 3 ML VIAL (humaLOG) SUBCUT PRN ×2 (18:53→22:31)
--- NOTE | 2022-05-20 18:55 | NUR ---
Scheduled subq and po medications given per order. Covered per sliding scale: 2 units. Patient stable throughout shift.
[2022-05-20 20:00] VITALS: BP_SYST 122
[2022-05-21 00:46] VITALS: BP_SYST 140
[2022-05-21] MEDS: PIPERACILLIN/TAZOBACTAM 2.25 GM in NS 50 ML IV SCH ×3 (05:29→21:57)
--- NOTE | 2022-05-21 06:00 | NUR ---
SPENT A FAIR NIGHT RARE CONVERSATION
[2022-05-21] MEDS: LABETALOL HCL 100 MG TABLET PO SCH ×3 (06:25→22:00)
--- NOTE | 2022-05-21 08:00 | NUR ---
Initial notes Received patient in bed awake, flat affect A/Ox 4, communicate when desires, no signs of distress or pain, oxygen saturation at 100%. IV infusing to left forearm patent, maintain safety precaution, continue to monitor
[2022-05-21 08:14] VITALS: BP_SYST 141
[2022-05-21] MEDS: CALCIUM ACETATE 667 MG CAP PO SCH ×4 (08:27→17:12)
[2022-05-21] MEDS: lisinopriL 5 MG TABLET PO SCH (08:28)
[2022-05-21] MEDS: FUROSEMIDE 40 MG/4 ML VIAL IVP SCH ×2 (08:28→21:00)
[2022-05-21] MEDS: QUEtiapine FUMARATE 25 MG TABLET PO SCH ×3 (08:29→21:00)
[2022-05-21] MEDS: FOLIC ACID 1 MG TABLET PO SCH (08:29)
[2022-05-21] MEDS: amLODIPine BESYLATE 10 MG TABLET PO SCH (08:30)
--- NOTE | 2022-05-21 10:00 | NUR ---
Rounding Patient refused turning, no c/o pain or SOB continue to monitor
[2022-05-21 12:00] VITALS: BP_SYST 143
[2022-05-21] MEDS: INSULIN LISPRO SLIDING SCALE 100 UNITS/ML, 3 ML VIAL (humaLOG) SUBCUT PRN ×2 (12:31→17:09)
[2022-05-21 15:56] VITALS: BP_SYST 128
--- NOTE | 2022-05-21 17:12 | NUR ---
Medication Patient refused medication calcium acetate stating "I don't want it" educate the importance to prevent further complication but patient still refused.
--- NOTE | 2022-05-21 19:29 | NUR ---
Closing notes No change in condition, patient refused turning position as scheduled, will endorse.
[2022-05-21 20:00] VITALS: BP_SYST 124
[2022-05-21] MEDS: TAMSULOSIN HCL 0.4 MG CAP PO SCH (21:00)
[2022-05-21] MEDS: ATORVASTATIN 20 MG TABLET PO SCH (21:00)
[2022-05-22 00:25] VITALS: BP_SYST 118
[2022-05-22 04:00] VITALS: BP_SYST 116
[2022-05-22] MEDS: LABETALOL HCL 100 MG TABLET PO SCH ×3 (06:00→22:56)
[2022-05-22] MEDS: PIPERACILLIN/TAZOBACTAM 2.25 GM in NS 50 ML IV SCH ×3 (06:23→22:56)
--- NOTE | 2022-05-22 08:00 | NUR ---
Initial notes Received patient in bed awake, flat affect A/Ox 4, no signs of distress or pain, oxygen saturation at 100%. IV infusing to left forearm patent, maintain safety precaution, continue to monitor
[2022-05-22 08:30] VITALS: BP_SYST 146
[2022-05-22] MEDS: FUROSEMIDE 40 MG/4 ML VIAL IVP SCH ×2 (09:00→22:54)
[2022-05-22] MEDS: FOLIC ACID 1 MG TABLET PO SCH (09:01)
[2022-05-22] MEDS: CALCIUM ACETATE 667 MG CAP PO SCH ×3 (09:01→17:36)
[2022-05-22] MEDS: lisinopriL 5 MG TABLET PO SCH (09:02)
[2022-05-22] MEDS: amLODIPine BESYLATE 10 MG TABLET PO SCH (09:02)
[2022-05-22] MEDS: QUEtiapine FUMARATE 25 MG TABLET PO SCH ×3 (09:03→22:55)
--- NOTE | 2022-05-22 10:00 | NUR ---
Rounding Patient refused turning position, does not want to be disturbed, educate the importance to prevent further skin breakdown ,but patient still refused.
[2022-05-22 10:05] LABS: ALBUMIN 1.6 g/dL (3.4-4.8); TOTAL BILIRUBIN 0.4 mg/dL (0.0-1.0)
[2022-05-22 10:09] LABS: BASOPHILS # (AUTO) 0.1 K/uL (0.0-0.2); BASOPHILS % (AUTO) 0.8 % (0.0-2.0); EOSINOPHILS # (AUTO) 0.4 K/uL (0.0-0.4); EOSINOPHILS % (AUTO) 3.8 % (0.0-4.0); HEMOGLOBIN 8.6 g/dL (14.0-18.0); LYMPHOCYTES # (AUTO) 1.1 K/uL (1.0-5.5); LYMPHOCYTES % (AUTO) 10.9 % (20.5-51.5); MEAN CORPUSCULAR HEMOGLOBIN 30 pg (27-31); MEAN CORPUSCULAR HGB CONC 33 % (32-36); MEAN CORPUSCULAR VOLUME 91 fL (79.0-98.0); MONOCYTES # (AUTO) 0.5 K/uL (0.0-1.0); MONOCYTES % (AUTO) 5.4 % (1.7-9.3); NEUTROPHILS # (AUTO) 7.8 K/uL (1.8-7.7); NEUTROPHILS % (AUTO) 79.1 % (40.0-70.0); PLATELET COUNT (AUTO) 227 K/uL (130-430); RED BLOOD CELL COUNT(AUTO) 2.87 MIL/uL (4.2-6.2); RED CELL DISTRIBUTION WIDTH 14.8 % (9.0-15.0); WHITE BLOOD COUNT (AUTO) 9.8 K/uL (4.8-10.8)
[2022-05-22 10:19] LABS: CALCIUM 5.9 mg/dL (8.4-11.0); CREATININE 10.92 mg/dL (0.55-1.30)
--- NOTE | 2022-05-22 11:30 | NUR ---
Notes Patient refused blood glucose testing and by mouth medication stating " later, not know" education the importance to prevent further complication, but patient still refused
[2022-05-22] MEDS ORDERED: CALCIUM GLUCONATE 2 GM in NS 100 ML IV ONE (11:45)
--- NOTE | 2022-05-22 13:15 | NUR ---
Critical values Notified Dr Abdalla critical values: Ca=5.9, FGS=822, Cr=10.9. Ordered Calcium gluconate IVPB given x1 given.
[2022-05-22 15:27] VITALS: BP_SYST 130
--- NOTE | 2022-05-22 18:53 | NUR ---
Closing Patient noncompliance refused turning position, scheduled medication and glucose testing during my shift. No signs of pain/SOB. all safety secured, will endorse
--- NOTE | 2022-05-22 20:35 | NUR ---
REFUSE , VITAL SIGNS procedures explained / .
[2022-05-22] MEDS: TAMSULOSIN HCL 0.4 MG CAP PO SCH (21:00)
[2022-05-22] MEDS: ATORVASTATIN 20 MG TABLET PO SCH (21:00)
--- NOTE | 2022-05-22 22:12 | NUR ---
REFUSE BSG blood sugar check .
--- NOTE | 2022-05-22 23:25 | NUR ---
REFUSING wound care procedures explained / @ this time .
--- NOTE | 2022-05-22 23:27 | NUR ---
REFUSING to TURN & Reposition REFUSING BED SIDE CARE .
--- NOTE | 2022-05-23 03:52 | NUR ---
REFUSING WOUND CARE procedures explained / Refuse , patient is alert .
--- NOTE | 2022-05-23 05:33 | NUR ---
wound care performed this hour SACRAL & LT& RT HIP areas as ordered , patient tolerated procedures explained .
[2022-05-23] MEDS: PIPERACILLIN/TAZOBACTAM 2.25 GM in NS 50 ML IV SCH ×3 (06:57→21:43)
[2022-05-23] MEDS: LABETALOL HCL 100 MG TABLET PO SCH ×3 (06:57→21:42)
[2022-05-23 07:14] LABS: BASOPHILS # (AUTO) 0.1 K/uL (0.0-0.2); BASOPHILS % (AUTO) 0.8 % (0.0-2.0); EOSINOPHILS # (AUTO) 0.4 K/uL (0.0-0.4); EOSINOPHILS % (AUTO) 3.9 % (0.0-4.0); HEMATOCRIT 23.8 % (36-54); HEMOGLOBIN 8.1 g/dL (14.0-18.0); LYMPHOCYTES # (AUTO) 1.3 K/uL (1.0-5.5); MEAN CORPUSCULAR HEMOGLOBIN 31 pg (27-31); MEAN CORPUSCULAR HGB CONC 34 % (32-36); MEAN CORPUSCULAR VOLUME 90 fL (79.0-98.0); MONOCYTES # (AUTO) 0.5 K/uL (0.0-1.0); MONOCYTES % (AUTO) 5.2 % (1.7-9.3); NEUTROPHILS % (AUTO) 76.1 % (40.0-70.0); PLATELET COUNT (AUTO) 235 K/uL (130-430); RED BLOOD CELL COUNT(AUTO) 2.64 MIL/uL (4.2-6.2); RED CELL DISTRIBUTION WIDTH 14.7 % (9.0-15.0); WHITE BLOOD COUNT (AUTO) 9.2 K/uL (4.8-10.8)
[2022-05-23 08:00] VITALS: BP_SYST 118
[2022-05-23 08:38] LABS: CALCIUM 6.4 mg/dL (8.4-11.0)
[2022-05-23 08:40] LABS: CREATININE 11.18 mg/dL (0.55-1.30)
[2022-05-23] MEDS: QUEtiapine FUMARATE 25 MG TABLET PO SCH ×3 (08:40→21:41)
[2022-05-23] MEDS: CALCIUM ACETATE 667 MG CAP PO SCH ×3 (08:40→18:00)
[2022-05-23] MEDS: amLODIPine BESYLATE 10 MG TABLET PO SCH (08:41)
[2022-05-23] MEDS: FOLIC ACID 1 MG TABLET PO SCH (08:42)
[2022-05-23] MEDS: lisinopriL 5 MG TABLET PO SCH (08:42)
[2022-05-23] MEDS: FUROSEMIDE 40 MG/4 ML VIAL IVP SCH ×2 (08:43→21:41)
--- NOTE | 2022-05-23 08:51 | NUR ---
CONSULTATION PAGED REASON FOR CONSULTATION:bilateral pneumonia WAS CONSULT CALLED?y PERSON WHO WAS NOTIFIED:MAE CONSULTING PHYSICIAN:RAY DAWSON TAXONOMIST SPECIALTY:ID TAXONOMIST PHONE NUMBER:[phone] REQUESTING PHYSICIAN:DR.[facility]
[2022-05-23 11:23] VITALS: BP_SYST 132
--- NOTE | 2022-05-23 16:12 | NUR ---
Nutrition F/U: Admitting Diagnosis Pneumonia Reviewed Pertinent Medical/Surgical Hx Medical Record; Patient Medical History Comment: Per EMR review, 47 YOM w/ PMH of ESRD on HD, DM, paraplegia, HTN, HLD who was brought into ED by paramedics for evaluation of SOB. Pt reported feeling SOB and was unable to complete dialysis. Pt recently had L IJ Hemal catheter placed at [facility]. Pt was also found w / acute respiratory failure likely 2/2 bilat pneumonia, severe sepsis likely 2/2 pneumonia, ESRD on HD, possible dysfunctional L IJ Hemal catheter, normocytic anemia likely 2/2 CKD, hypocalcemia, severe malnutrition, and VMN. Subjective Information: RD rounded to patient room and s/w patient at bedside. Patient was disinterested in RD visit, providing short answers. Patient reports he is eating fine and nodded his head no when RD asked if patient was drinking unopened nepro ONS seen on bedside table. Per EMR, 75% PO intake documented, improved since last RD visit. Patient denied N/V/D/C. Per RD chart review, patient LBM x [address] 05[address] unable to verify if patient is receiving Anshu via EMR, no documentation found. RD s/w RN via phone: RN reports patient refused breakfast today and missed lunch d/t patient being NPO pending Sx. Sx was postponed until tomorrow so patient will be receiving dinner tray. RN reports she has not seen patient drink ONS today and patient has not received Anshu today either. RD asked RN to document in chart when patient receives or refuses Anshu, RN verbalized agreement. Current Diet Order/Nutrition Support: CCHO 60g, Renal x 3 days Patient/Significant Other Able To Verbalize Education Provided Not Indicated Pertinent Medications: lipitor, phoslo, folic acid, SSI, retacrit, lasix, lisinopril, norvasc, piper/tazo Pertinent Labs: BUN 127 H, CRE 11.18 H, BG 153 H, POC BG 118 H, Hgb 8.1 L, Ca 6.4 L Height (Feet) 5 feet Height (Inches) 9.00 inches Weight (Pounds) 172 pounds Weight (Calculated Kilograms) 78.039721 kilograms Patient Weight 78.018 kg Body Mass Index 25.40 kg/m2 %IBW 108 Maurice/Adjusted Body Weight 160#/72.7 kg. Adj IBW (paraplegia): 148#/67.3 kg Recent Weight Change Unable to verify Weight Status Overweight Food Allergies [place] and tuna, per RD visit 05/20 Current % PO Good (75-100%) Estimated Energy Expenditure (kcals/day) 0346-1919 (30-35 kcal/kg Adj IBW d/t wound healing, acute illness) Estimated Protein Required (g/day) 52-65 (1-1.25 gm/kg Adj IBW d/t ESRD/dysfunctional HD access/wound) Estimated Fluid Required (l/day) Per physician d/t ESRD Problem/Etiology/Signs/Symptoms * Increased nutritional needs R/T metabolic demands AEB estimated nutritional requirements for wound healing and acute illness (On-going) * Altered nutrition-related labs R/T endocrine and renal dysfunction AEB elevated BG/POC BG/BUN/CRE lab values (On-going) * Suboptimal nutritional intakes R/T unknown etiology AEB fair PO intake Records (resolving) Expected Outcomes/Goals - Monitor appetite and PO intakes w/ goal of pt meeting >75% of estimated nutritional needs, labs trending WNL, normal GI function, and skin integrity/wt maintenance; weight fluctuations likely d/t HD Dietitian Recommendations * Continue Renal, CCHO diet w/ Nepro BID, Anshu BID (ONS yields 1020 kcal/day, 43 gm protein/day) * Nursing: please document Anshu and Nepro intake/refusal daily Follow Up High Risk: F/U in 2-3days Addendum: 05/23/22 at [address] Follow Up Moderate Risk: F/U in 3-5 days
--- NOTE | 2022-05-23 16:15 | NUR ---
Dietitian Recommendations * Continue Renal, CCHO diet w/ Nepro BID, Anshu BID (ONS yields 1020 kcal/day, 43 gm protein/day) * Nursing: please document Anshu and Nepro intake/refusal daily Please refer to nutrition f/u for details, thanks! CC, MPH, RDN
[2022-05-23] MEDS: EPOETIN ALFA-EPBX 4,000 UNITS/ML VIAL SUBCUT SCH (17:00)
--- NOTE | 2022-05-23 17:30 | NUR ---
PATIENT REFUSED 1800 PHOSLO, MAXX, AND BLOOD SUGAR CHECK, RISKS EXPLAINED TO PATIENT
--- NOTE | 2022-05-23 17:43 | NUR ---
EPOGEN NOT GIVEN PATIENT DID NOT HAVE HD TODAY
[2022-05-23 17:51] VITALS: BP_SYST 126
[2022-05-23 20:00] VITALS: BP_SYST 135
[2022-05-23] MEDS: HEPARIN SODIUM,PORCINE 5,000 UNITS/ML VIAL SUBCUT SCH (21:40)
[2022-05-23] MEDS: TAMSULOSIN HCL 0.4 MG CAP PO SCH (21:41)
[2022-05-23] MEDS: ATORVASTATIN 20 MG TABLET PO SCH (21:56)
[2022-05-24] MEDS: HEPARIN SODIUM,PORCINE 5,000 UNITS/ML VIAL SUBCUT SCH ×3 (06:00→21:25)
[2022-05-24] MEDS: LABETALOL HCL 100 MG TABLET PO SCH ×3 (06:00→21:23)
[2022-05-24] MEDS: PIPERACILLIN/TAZOBACTAM 2.25 GM in NS 50 ML IV SCH ×3 (07:05→21:23)
[2022-05-24 08:00] VITALS: BP_SYST 132
[2022-05-24] MEDS: CALCIUM ACETATE 667 MG CAP PO SCH ×3 (08:00→17:37)
[2022-05-24 08:37] LABS: BASOPHILS # (AUTO) 0.1 K/uL (0.0-0.2); BASOPHILS % (AUTO) 0.8 % (0.0-2.0); EOSINOPHILS # (AUTO) 0.3 K/uL (0.0-0.4); EOSINOPHILS % (AUTO) 4.5 % (0.0-4.0); HEMOGLOBIN 8.4 g/dL (14.0-18.0); LYMPHOCYTES # (AUTO) 1.1 K/uL (1.0-5.5); LYMPHOCYTES % (AUTO) 14.4 % (20.5-51.5); MEAN CORPUSCULAR HEMOGLOBIN 31 pg (27-31); MEAN CORPUSCULAR HGB CONC 34 % (32-36); MEAN CORPUSCULAR VOLUME 91 fL (79.0-98.0); MONOCYTES # (AUTO) 0.3 K/uL (0.0-1.0); MONOCYTES % (AUTO) 3.6 % (1.7-9.3); NEUTROPHILS # (AUTO) 5.7 K/uL (1.8-7.7); NEUTROPHILS % (AUTO) 76.7 % (40.0-70.0); PLATELET COUNT (AUTO) 278 K/uL (130-430); RED BLOOD CELL COUNT(AUTO) 2.76 MIL/uL (4.2-6.2); RED CELL DISTRIBUTION WIDTH 14.5 % (9.0-15.0); WHITE BLOOD COUNT (AUTO) 7.5 K/uL (4.8-10.8)
[2022-05-24] MEDS: FUROSEMIDE 40 MG/4 ML VIAL IVP SCH ×2 (09:00→21:25)
[2022-05-24] MEDS: QUEtiapine FUMARATE 25 MG TABLET PO SCH ×3 (09:00→21:24)
[2022-05-24 09:06] LABS: PHOSPHORUS 9.5 mg/dL (2.7-4.5)
[2022-05-24 09:22] LABS: CREATININE 11.81 mg/dL (0.55-1.30)
[2022-05-24] MEDS ORDERED: NS IRRIG SOLN 1000 ML IR ONE (09:35)
[2022-05-24] MEDS ORDERED: PROPOFOL 200MG/ 20ML VIAL (DIPRIVAN) IV ONE (09:35)
[2022-05-24] MEDS ORDERED: NS 50 ML BAG IV ONE (09:35)
[2022-05-24] MEDS ORDERED: LIDOCAINE 1% 10 MG/ML, 20 ML MDV INJ ONE (09:35)
[2022-05-24] MEDS ORDERED: BUPIVACAINE /PF 0.25% 30 ML VIAL INJ ONE (09:35)
[2022-05-24] MEDS ORDERED: fentaNYL CITRATE/PF 100 MCG/2 ML AMP IVP ONE (09:35)
[2022-05-24] MEDS ORDERED: NACL 0.9% 1,000 ML IV SCH (10:45)
[2022-05-24] MEDS ORDERED: ONDANSETRON HCL 4 MG/2 ML VIAL IVP PRN (10:45)
[2022-05-24] MEDS ORDERED: HYDROmorphone 1 MG/ML INJ. CARTRIDGE IVP PRN (10:45)
[2022-05-24 10:57] LABS: PROTHROMBIN TIME 10.8 SECS (9.5-12.5)
[2022-05-24] MEDS ORDERED: HEPARIN SODIUM,PORCINE 5,000 UNITS/ML VIAL MC ONE (14:45)
[2022-05-24] MEDS: FOLIC ACID 1 MG TABLET PO SCH (17:37)
[2022-05-24] MEDS: lisinopriL 5 MG TABLET PO SCH (17:38)
[2022-05-24] MEDS: amLODIPine BESYLATE 10 MG TABLET PO SCH (17:39)
--- NOTE | 2022-05-24 19:27 | NUR ---
A/Ox4,vss,on O2 4L/NC,sat 98%,resting well in bed,S/P right IJ perma cath insertion this am, pt had HD after perma cath placed,and removed 2 L per HD,give IV antibiotic due,no adverse reactions noted,needs attended,call light & personal items within pt reach safety maintained.continue to monitor pt.
--- NOTE | 2022-05-24 19:30 | NUR ---
OPENING NOTE REPORT RECEIVED FROM DAYSHIFT NURSE. PATIENT RECEIVED LYING IN BED, RESTING. NO S/S OF ACUTE DISTRESS. BREATHING EVEN AND UNLABORED. HOB RAISED. IV SITE PATENT, NO SIGNS OF INFILTRATION OR INFECTION NOTED. CALL LIGHT WITH PATIENT. BED IS LOCKED AND AT LOWEST POSITION. WILL CONTINUE TO MONITOR.
[2022-05-24 20:00] VITALS: BP_SYST 143
[2022-05-24] MEDS: TAMSULOSIN HCL 0.4 MG CAP PO SCH (21:23)
[2022-05-24] MEDS: ATORVASTATIN 20 MG TABLET PO SCH (21:24)
[2022-05-24] MEDS: INSULIN LISPRO SLIDING SCALE 100 UNITS/ML, 3 ML VIAL (humaLOG) SUBCUT PRN (21:26)
--- NOTE | 2022-05-24 23:00 | NUR ---
ROUNDS PATIENT IN BED, RESTING COMFORTABLY. NO SIGNS OF DISCOMFORT. WILL MONITOR.
[2022-05-25] VITALS: BP_SYST 135
--- NOTE | 2022-05-25 03:21 | NUR ---
ROUNDS PATIENT IN BED, RESTING. NO CHANGE IN CONDITION. WILL MONITOR.
[2022-05-25] MEDS: PIPERACILLIN/TAZOBACTAM 2.25 GM in NS 50 ML IV SCH ×3 (05:38→22:37)
[2022-05-25] MEDS: LABETALOL HCL 100 MG TABLET PO SCH ×3 (05:50→22:35)
[2022-05-25] MEDS: HEPARIN SODIUM,PORCINE 5,000 UNITS/ML VIAL SUBCUT SCH ×4 (05:50→22:36)
--- NOTE | 2022-05-25 06:17 | NUR ---
CLOSING NOTE PATIENT IN BED RESTING AT THIS TIME. NO S/S OF ACUTE DISTRESS. BREATHING EVEN AND UNLABORED. HOB RAISED. NASAL CANULA ATTACHED PROPERLY, ON 2L OF OXYGEN. IV SITE IS PATENT, NO SIGNS OF INFILTRATION OR INFECTION NOTED. SKIN WARM AND DRY TO TOUCH. NO S/S OF HYPOGLYCEMIA NOTED. ALL NEEDS MET THROUGHOUT SHIFT. FALL, SAFETY PRECAUTIONS IN PLACE. WILL MONITOR UNTIL PATIENT CARE IS ENDORSED TO ONCOMING DAYSHIFT NURSE.
[2022-05-25 08:00] VITALS: BP_SYST 137
[2022-05-25 08:35] LABS: BASOPHILS % (AUTO) 0.7 % (0.0-2.0); EOSINOPHILS # (AUTO) 0.2 K/uL (0.0-0.4); EOSINOPHILS % (AUTO) 3.1 % (0.0-4.0); HEMATOCRIT 24.8 % (36-54); HEMOGLOBIN 8.4 g/dL (14.0-18.0); LYMPHOCYTES # (AUTO) 0.8 K/uL (1.0-5.5); LYMPHOCYTES % (AUTO) 11.1 % (20.5-51.5); MEAN CORPUSCULAR HEMOGLOBIN 31 pg (27-31); MEAN CORPUSCULAR HGB CONC 34 % (32-36); MEAN CORPUSCULAR VOLUME 90 fL (79.0-98.0); MONOCYTES # (AUTO) 0.3 K/uL (0.0-1.0); MONOCYTES % (AUTO) 4.3 % (1.7-9.3); NEUTROPHILS # (AUTO) 5.6 K/uL (1.8-7.7); NEUTROPHILS % (AUTO) 80.8 % (40.0-70.0); PLATELET COUNT (AUTO) 308 K/uL (130-430); RED BLOOD CELL COUNT(AUTO) 2.76 MIL/uL (4.2-6.2); RED CELL DISTRIBUTION WIDTH 14.6 % (9.0-15.0); WHITE BLOOD COUNT (AUTO) 6.9 K/uL (4.8-10.8)
[2022-05-25 08:58] LABS: CALCIUM 7.9 mg/dL (8.4-11.0)
[2022-05-25 09:36] LABS: CREATININE 8.15 mg/dL (0.55-1.30)
--- NOTE | 2022-05-25 10:13 | NUR ---
Patient refused U/S. Dr. Alvarado made aware.
[2022-05-25] MEDS: FOLIC ACID 1 MG TABLET PO SCH (10:28)
[2022-05-25] MEDS: CALCIUM ACETATE 667 MG CAP PO SCH ×3 (10:28→16:24)
[2022-05-25] MEDS: amLODIPine BESYLATE 10 MG TABLET PO SCH (10:29)
[2022-05-25] MEDS: lisinopriL 5 MG TABLET PO SCH (10:29)
[2022-05-25] MEDS: FUROSEMIDE 40 MG/4 ML VIAL IVP SCH ×3 (10:29→22:44)
[2022-05-25] MEDS: QUEtiapine FUMARATE 25 MG TABLET PO SCH ×3 (10:29→22:35)
--- NOTE | 2022-05-25 11:30 | NUR ---
Discharge Planning: DCP faxed pt referral to [facility] [phone], [facility] [phone] Francisca will check if contracted with insurance. DCP to follow up.
--- NOTE | 2022-05-25 11:48 | NUR ---
Spoke with AVILA Frank, regarding patient situation. Patient needs to have dialysis schedule set up for outpatient. Pending return call and availability. Patient made aware.
[2022-05-25 12:00] VITALS: BP_SYST 124
[2022-05-25] MEDS: INSULIN LISPRO SLIDING SCALE 100 UNITS/ML, 3 ML VIAL (humaLOG) SUBCUT PRN ×2 (12:25→22:38)
--- NOTE | 2022-05-25 13:40 | NUR ---
Crime Laboratory Analyst STATISTICAL TECHNICIAN received a referral to see pt. for social service STATISTICAL TECHNICIAN introduced self to pt with the Bess automatic print developer. for Portuguese. and provided pt with a business card. Pt. was agreeable to this interview. Pt. was calm, guarded and only answered each question without elaborating. Pt. stated he was fine and is a resident at [facility]. Pt. stated he will return once he is discharged. When asked, Pt. stated he has no family. Pt. stated he has friends, but has not spoken to them in a while. Pt. stated he is a new HD pt. and is waiting for his schedule to receive HD. Pt. denied ever having any mental health needs as well as denied being suicidal. Pt. stated he has his own wheel chair. Pt. did not have any questions or needs. STATISTICAL TECHNICIAN will remain available as needed.
[2022-05-25 16:00] VITALS: BP_SYST 136
[2022-05-25] MEDS: EPOETIN ALFA-EPBX 4,000 UNITS/ML VIAL SUBCUT SCH (16:26)
--- NOTE | 2022-05-25 17:14 | NUR ---
Patient refused ultrasound x3. made aware.
--- NOTE | 2022-05-25 18:23 | NUR ---
Patient refused night time pills.
--- NOTE | 2022-05-25 18:24 | NUR ---
Patient HD finished. 2L out. Patient vital signs BP 142/71
--- NOTE | 2022-05-25 19:41 | NUR ---
Report given to maintenance mechanic 2nd shift RN for continuity of care. No distress noted.
[2022-05-25 20:00] VITALS: BP_SYST 147
--- NOTE | 2022-05-25 21:15 | NUR ---
REFUSING TREATMENT PATIENT MADE AWARE, RN WILL TAKE VITAL SIGNS, AND SCHEDULED MEDICATIONS WILL BE GIVEN. PATIENT REFUSES ALL CARE. RN STATED "I WILL BE BACK IN AN HOUR THEN". WILL CONTINUE TO ENCOURAGE.
--- NOTE | 2022-05-25 22:30 | NUR ---
ENCOURAGED/PATIENT CARE PATIENT ALLOWED VITALS, ALLOWED SCHEDULED MEDICATIONS TO BE ADMINISTERED EXCEPT FOR HEPARIN AND LASIX. ALSO PATIENT ALLOWED INCONTINENT CARE ALONG WITH WOUNDCARE TO BE DONE AT THIS TIME. WILL MONITOR.
[2022-05-25] MEDS: ATORVASTATIN 20 MG TABLET PO SCH (22:35)
[2022-05-25] MEDS: TAMSULOSIN HCL 0.4 MG CAP PO SCH (22:35)
[2022-05-26] VITALS: BP_SYST 138
[2022-05-26 03:06] LABS: HEPATITIS A AB, IgM Negative (Negative); HEPATITIS B CORE AB, IgM Negative (Negative); HEPATITIS B SURFACE AG Negative (Negative)
--- NOTE | 2022-05-26 03:13 | NUR ---
ROUNDS PATIENT IN BED, RESTING. NO S/S OF ACUTE DISTRESS. ALL NEEDS MET. WILL MONITOR.
[2022-05-26] MEDS: LABETALOL HCL 100 MG TABLET PO SCH ×2 (06:00→14:00)
[2022-05-26] MEDS: HEPARIN SODIUM,PORCINE 5,000 UNITS/ML VIAL SUBCUT SCH ×2 (06:00→14:00)
[2022-05-26] MEDS: PIPERACILLIN/TAZOBACTAM 2.25 GM in NS 50 ML IV SCH ×2 (06:05→14:00)
--- NOTE | 2022-05-26 06:50 | NUR ---
CLOSING NOTE PATIENT IN BED, RESTING. NO S/S OF ACUTE DISTRESS. BREATHING IS EVEN AND UNLABORED. HOB SLIGHTLY RAISED. IV PATIENT. NO SIGNS OF INFILTRATION OR INFECTION NOTED. ALL NEEDS MET THROUGHOUT SHIFT. FALL, SAFETY PRECAUTIONS MAINTAINED THROUGHOUT SHIFT. WILL CONTINUE TO MONITOR UNTIL PATIENT CARE IS ENDORSED TO ONCOMING DAYSHIFT NURSE.
[2022-05-26 07:04] LABS: BASOPHILS % (AUTO) 0.4 % (0.0-2.0); EOSINOPHILS # (AUTO) 0.2 K/uL (0.0-0.4); EOSINOPHILS % (AUTO) 2.4 % (0.0-4.0); HEMATOCRIT 24.2 % (36-54); HEMOGLOBIN 8.3 g/dL (14.0-18.0); LYMPHOCYTES # (AUTO) 0.9 K/uL (1.0-5.5); LYMPHOCYTES % (AUTO) 12.1 % (20.5-51.5); MEAN CORPUSCULAR HEMOGLOBIN 31 pg (27-31); MEAN CORPUSCULAR HGB CONC 34 % (32-36); MEAN CORPUSCULAR VOLUME 89 fL (79.0-98.0); MONOCYTES # (AUTO) 0.5 K/uL (0.0-1.0); NEUTROPHILS # (AUTO) 5.9 K/uL (1.8-7.7); NEUTROPHILS % (AUTO) 79.1 % (40.0-70.0); PLATELET COUNT (AUTO) 302 K/uL (130-430); RED BLOOD CELL COUNT(AUTO) 2.71 MIL/uL (4.2-6.2); RED CELL DISTRIBUTION WIDTH 14.7 % (9.0-15.0); WHITE BLOOD COUNT (AUTO) 7.5 K/uL (4.8-10.8)
[2022-05-26 07:18] LABS: CALCIUM 7.3 mg/dL (8.4-11.0); CREATININE 5.41 mg/dL (0.55-1.30)
[2022-05-26] MEDS: CALCIUM ACETATE 667 MG CAP PO SCH ×3 (08:00→17:34)
--- NOTE | 2022-05-26 08:30 | NUR ---
Patient is AAOx4, no acute distress noted. Patient refused vital signs, mediactions this monring despite encouragement and teaching by the nurse. communication was done via translation "voyce" Patient stated that: 'I don't want to stay in this [facility] hospital" The nurse in charge made aware and the physician paged, awaiting for the call back. Will continue to monitor.
[2022-05-26] MEDS: lisinopriL 5 MG TABLET PO SCH (09:00)
[2022-05-26] MEDS: FUROSEMIDE 40 MG/4 ML VIAL IVP SCH (09:00)
[2022-05-26] MEDS: amLODIPine BESYLATE 10 MG TABLET PO SCH (09:00)
[2022-05-26] MEDS: FOLIC ACID 1 MG TABLET PO SCH (09:00)
[2022-05-26] MEDS: QUEtiapine FUMARATE 25 MG TABLET PO SCH ×2 (09:00→15:00)
--- NOTE | 2022-05-26 11:32 | NUR ---
Dr. Lowery contacted regarding the patient refusal care. Awaiting for call back. Will continue to monitor.
--- NOTE | 2022-05-26 11:53 | NUR ---
Spoke to case management regarding patient D/C. As per director case, patient is not ready for the hep. panel and Tb gold result are not ready at this time. Will continue to monitor.
--- NOTE | 2022-05-26 15:41 | NUR ---
Discharge Planning: FOZIA followed up with pt referral to [facility] [phone]. Patient goes to [address] [address] TT 1:30am-5:30am [phone]. Holiday schedule is Monday05/28/2022 6:30am-9:30am. Addendum: 05/26/22 at 1621 by Nelda Bob DP FOZIA arranged transport with [facility] [phone] requested time BLS 6:00pm to [facility] [phone]. DCP made CM and nurse made aware, patient packet taken to nurse station.
--- NOTE | 2022-05-26 17:15 | NUR ---
Report given to nurse Beckman at this time.
[2022-05-26] MEDS: INSULIN LISPRO SLIDING SCALE 100 UNITS/ML, 3 ML VIAL (humaLOG) SUBCUT PRN (17:37)
[2022-05-26 17:52] VITALS: BP_SYST 147
== END 2022-05-26 18:30 | DRG 206 ==
LOC: SED 22:35 → STU 05-18 03:23 → SMU 05-24 13:31
PROVIDERS: ADMIT Family Medicine; ATTEND Family Medicine
PROC: 5A1D70Z Performance of Urinary Filtration, Intermittent, Less than 6 Hours Per Day (ICD-10-PCS; 2022-05-18)
PROC: 02HV33Z Insertion of Infusion Device into Superior Vena Cava, Percutaneous Approach (ICD-10-PCS; 2022-05-24)
PROC: B518ZZA Fluoroscopy of Superior Vena Cava, Guidance (ICD-10-PCS; 2022-05-24)
PROC: B548ZZA Ultrasonography of Superior Vena Cava, Guidance (ICD-10-PCS; 2022-05-24)
PROC: 5A1D70Z Performance of Urinary Filtration, Intermittent, Less than 6 Hours Per Day (ICD-10-PCS; 2022-05-24)
PROC: 0JH60XZ Insertion of Tunneled Vascular Access Device into Chest Subcutaneous Tissue and Fascia, Open Approach (ICD-10-PCS; principal; 2022-05-24 08:00)
PROC: 5A1D70Z Performance of Urinary Filtration, Intermittent, Less than 6 Hours Per Day (ICD-10-PCS; 2022-05-25)
DX: T82.49XA Other complication of vascular dialysis catheter, initial encounter (principal); J96.01 Acute respiratory failure with hypoxia; N17.0 Acute kidney failure with tubular necrosis; R65.20 Severe sepsis without septic shock; E43 Unspecified severe protein-calorie malnutrition; A41.9 Sepsis, unspecified organism; E83.51 Hypocalcemia; D63.1 Anemia in chronic kidney disease; G82.20 Paraplegia, unspecified; J18.9 Pneumonia, unspecified organism; E11.21 Type 2 diabetes mellitus with diabetic nephropathy; K21.9 Gastro-esophageal reflux disease without esophagitis; N40.0 Benign prostatic hyperplasia without lower urinary tract symptoms; Z20.822 Contact with and (suspected) exposure to COVID-19; E78.5 Hyperlipidemia, unspecified; I25.10 Atherosclerotic heart disease of native coronary artery without angina pectoris; Y83.8 Other surgical procedures as the cause of abnormal reaction of the patient, or of later complication, without mention of misadventure at the time of the procedure; Z79.899 Other long term (current) drug therapy; Z99.2 Dependence on renal dialysis; Z79.1 Long term (current) use of non-steroidal anti-inflammatories (NSAID); Z68.25 Body mass index [BMI] 25.0-25.9, adult; Y92.89 Other specified places as the place of occurrence of the external cause
CPT/HCPCS: 36415; 36600; 71045; 76000; 80048; 80053; 80074; 80202; 82803-TC; 82962; 83605; 83735; 84100; 85025; 85610-TC; 86480; 87040; 87081; 90935; 90937; 99291; G0378; J0610; J1644; J1940; J2001; J2185; J2543; J2704; J3010; J3370; J3490; J7030; J7050; Q5106